=== PATIENT | male | born 1990 | race Caucasian/White ===

== ENCOUNTER 2017-08-28 22:33 | Emergency (ER) | END 2017-08-29 01:09 | disposition home or self-care (01) ==

== ENCOUNTER 2018-04-30 02:46 | Emergency (ER) | payer OTHER ==
[~2018-04-30] VITALS: Wt 80.6 kg
[~2018-04-30 02:46] MED LIST: ACET500C5 PO; GUAI5SYR2 PO; IBUP-1542 PO
[2018-04-30] MEDS ORDERED: HYDR-3029 PO (05:13)
[2018-04-30] MEDS ORDERED: BEN25 PO (05:13)
[2018-04-30 05:32] VITALS: BP 128/72; PULSE 75; RESP 18
--- NOTE | 2018-04-30 05:45 | ERD ---
ER Documentation Chief Complaint Chief Complaint DIZZY, BOLES, ANXIOUS X'S 2 DAYS HPI 27-year-old male presenting with anxiety symptoms and racing heartbeat. Patient states that this comes and goes. He has a history of anxiety. States is been going on intermittently for over the last 5 months. He denies any suicidal homicidal ideations. He feels chest tightness and palpitations. He has not no causes it. Tonight it started when he was turning out of bed. Denies medical problems. NKDA. Surgical history denies. Social history denies ROS All systems reviewed and are negative except as per history of present illness. Medications Home Meds Active Scripts Diphenhydramine Hcl* (Benadryl*) 25 Mg Cap, 25 MG PO Q6, #30 CAP Prov:RAYO SOTO PA-C 04/30/18 Hydroxyzine Hcl* (Hydroxyzine Hcl*) 10 Mg Tablet, 10 MG PO Q6H PRN for ANXIETY, #30 TAB Prov:RAYO SOTO PA-C 04/30/18 Guaifenesin-Dextromethorphan* (Robitussin* DM) 100MG/10MG/5ML Syrup, 5 ML PO Q6H PRN for COUGH for 6 Days, #120 ML 0 Refills Prov:JESICA PATRICK PA-C 11/03/15 Acetaminophen* (Tylophen*) 500 Mg Capsule, 1 CAP PO Q6H PRN for PAIN AND OR ELEVATED TEMP, #30 CAP 0 Refills Prov:JESICA PATRICK PA-C 11/03/15 Ibuprofen* (Motrin*) 600 Mg Tab, 600 MG PO Q8 for 10 Days, #30 TAB 0 Refills Prov:JESICA PATRICK PA-C 11/03/15 Reported Medications [None] No Conflict Check 06/08/11 Allergies Allergies: Coded Allergies: No Known Allergy (Unverified , 11/03/15) PMhx/Soc Medical and Surgical Hx: pt denies Surgical Hx History of Surgery: No Anesthesia Reaction: No Hx Neurological Disorder: No Hx Respiratory Disorders: No Hx Cardiac Disorders: No Hx Psychiatric Problems: Yes (had an anxiety episode 1 before) Hx Miscellaneous Medical Probl: Yes (DEAF) Hx Alcohol Use: Yes (quit 6 months ago ) Hx Substance Use: Yes (used marijuana once) Hx Tobacco Use: No Smoking Status: Former smoker FmHx Family History: No diabetes, No coronary disease, No other Physical Exam Vitals Vital Signs Date Temp Pulse Resp B/P (MAP) Pulse Ox O2 O2 Flow FiO2 Time Delivery Rate 04/30/18 98.0 75 18 128/72 98 Room Air 05:32 (90) 04/30/18 97.1 76 20 144/93 100 02:52 (110) Physical Exam GENERAL: The patient is well-appearing, well-nourished, in no acute distress HEENT: Atraumatic. Conjunctivae are pink. Pupils equal, round, and reactive to light. There is no scleral icterus. Tympanic membranes clear bilaterally. Oropharynx clear. No nystagmus or photophobia. NECK: C-spine is soft and supple. There is no meningismus. There is no cervical lymphadenopathy. CHEST: Clear to auscultation bilaterally. There are no rales, wheezes or rhonchi. HEART: Regular rate and rhythm. No murmurs, clicks, rubs or gallops. No S3 or S4. Result Diagram: 04/30/187 04/30/18 0407 Results 24 hrs Laboratory Tests Test 04/30/18 04:07 04/30/18 04:10 White Blood Count 7.4 10^3/ul Red Blood Count 5.27 10^6/ul Hemoglobin 14.9 g/dl Hematocrit 45.8 % Mean Corpuscular Volume 86.9 fl Mean Corpuscular Hemoglobin 28.3 pg Mean Corpuscular Hemoglobin Concent 32.5 g/dl Red Cell Distribution Width 13.1 % Platelet Count 235 10^3/UL Mean Platelet Volume 10.0 fl Immature Granulocytes % 0.700 % Neutrophils % 66.4 % Lymphocytes % 24.0 % Monocytes % 6.6 % Eosinophils % 1.9 % Basophils % 0.4 % Nucleated Red Blood Cells % 0.0 /100WBC Immature Granulocytes # 0.050 10^3/ul Neutrophils # 4.9 10^3/ul Lymphocytes # 1.8 10^3/ul Monocytes # 0.5 10^3/ul Eosinophils # 0.1 10^3/ul Basophils # 0.0 10^3/ul Nucleated Red Blood Cells # 0.0 10^3/ul Sodium Level 143 mmol/L Potassium Level 4.1 mmol/L Chloride Level 103 mmol/L Carbon Dioxide Level 27 mmol/L Anion Gap 13 Blood Urea Nitrogen 16 mg/dl Creatinine 0.84 mg/dl Est Glomerular Filtrat Rate mL/min > 60 mL/min Glucose Level 106 mg/dl Calcium Level 9.2 mg/dl Total Bilirubin 0.2 mg/dl Direct Bilirubin 0.00 mg/dl Indirect Bilirubin 0.2 mg/dl Aspartate Amino Transf (AST/SGOT) 26 IU/L Alanine Aminotransferase (ALT/SGPT) 20 IU/L Alkaline Phosphatase 82 IU/L Troponin I < 0.012 ng/ml Total Protein 7.9 g/dl Albumin 4.4 g/dl Globulin 3.50 g/dl Albumin/Globulin Ratio 1.25 Lipase 105 U/L Urine Color YELLOW Urine Clarity CLEAR Urine pH 6.0 Urine Specific Gilbert 1.028 Urine Ketones NEGATIVE mg/dL Urine Nitrite NEGATIVE mg/dL Urine Bilirubin NEGATIVE mg/dL Urine Urobilinogen NEGATIVE mg/dL Urine Leukocyte Esterase NEGATIVE Latrice/ul Urine Hemoglobin NEGATIVE mg/dL Urine Glucose NEGATIVE mg/dL Urine Total Protein NEGATIVE mg/dl Procedures/MDM DIAGNOSTIC IMAGING REPORT Patient: KIT CANO : 1990 Age: 27 Sex: M MR #: [id number] DOS: 04/30/18 0342 Ordering MD: ALLAN SOTO PA-C Location: [facility] Room/Bed: PROCEDURE: Single view chest. CLINICAL INDICATION: Abdominal pain TECHNIQUE: Single view of the chest was obtained COMPARISON: None FINDINGS: There is no airspace consolidation or focal infiltrate. No pleural effusion or pneumothorax. Cardiac silhouette and mediastinal contours are unremarkable. Pulmonary vasculature appears normal. Regional bones are grossly unremarkable. IMPRESSION: No evidence of active cardiopulmonary disease. EKG: Rate/Rhythm: 61 bpm normal Sinus Rhythm QRS, ST, T-waves: No changes consistent w/ acute ischemia Impression: No evidence of ischemia or arrhythmia MDM: 27-year-old male presenting with palpitations. Patient's exam is non- concerning, vitals are stable and patient's blood work is I have low suspicion for cardiac or pulmonary emergency. I have low suspicion for electrolyte imbal ance. Patient is discharged stricter precautions and told to follow-up with primary care within 1-2 days for close evaluation. Patient is told if symptoms change or worsen to immediately return to the ER. All questions answered at discharge Departure Diagnosis: Primary Impression: Anxiety Condition: Stable Patient Instructions: Anxiety Reaction Referrals: [facility] YOU HAVE RECEIVED A MEDICAL SCREENING EXAM AND THE RESULTS INDICATE THAT YOU DO NOT HAVE A CONDITION THAT REQUIRES URGENT TREATMENT IN THE EMERGENCY DEPARTMENT. FURTHER EVALUATION AND TREATMENT OF YOUR CONDITION CAN WAIT UNTIL YOU ARE SEEN IN YOUR DOCTORS OFFICE WITHIN THE NEXT 1-2 DAYS. IT IS YOUR RESPONSIBILITY TO MAKE AN APPOINTMENT FOR FOLOW-UP CARE. IF YOU HAVE A PRIMARY DOCTOR --you should call your primary doctor and schedule an appointment IF YOU DO NOT HAVE A PRIMARY DOCTOR YOU CAN CALL OUR PHYSICIAN REFERRAL HOTLINE AT IF YOU CAN NOT AFFORD TO SEE A PHYSICIAN YOU CAN CHOSE FROM THE FOLLOWING [facility] [address] [facility] [facility] [address] [facility] [facility] [address] [facility] [address] [facility] [facility] [address] [facility] [facility] [address] Additional Instructions: FOLLOW UP WITH YOUR PRIMARY CARE PHYSICIAN TOMORROW.Return to this facility if you are not improving as expected. RAYO SOTO PA-C Apr 30, 2018 05:45
== END 2018-04-30 05:39 | disposition home or self-care (01) ==
LOC: FTE 02:46
DX: F41.9 Anxiety disorder, unspecified (principal); Z87.891 Personal history of nicotine dependence
CPT/HCPCS: 71045; 80053; 81003; 83690; 84484; 85025; 93005